=== PATIENT | female | born 1945 | race Caucasian/White ===

== ENCOUNTER 2025-04-25 09:07 | Observation (INO) | payer MEDICARE ==
[~2025-04-25] VITALS: Ht 160 cm; Wt 68.6 kg
[2025-04-25 09:33] LABS: BASOPHILS ABSOLUTE AUTO 0.05 K/mm3 (0.00-0.23); BASOPHILS PERCENT AUTO 1 % (0-2); EOSINOPHILS ABSOLUTE AUTO 0.02 K/mm3 (0.00-0.68); EOSINOPHILS PERCENT AUTO 0 % (0-6); Hematocrit 38.3 % (33.0-51.0); Hemoglobin 12.7 g/dL (11.5-16.0); IMMATURE GRAN ABSOLUTE AUTO 0.01 K/mm3 (0.00-0.10); IMMATURE GRAN PERCENT AUTO 0 % (0-1); LYMPHOCYTES ABSOLUTE AUTO 1.30 K/mm3 (0.84-5.20); LYMPHOCYTES PERCENT AUTO 27 % (21-46); MONOCYTES ABSOLUTE AUTO 0.31 K/mm3 (0.16-1.47); MONOCYTES PERCENT AUTO 6 % (4-13); Mean Corpuscular HGB Conc 33.2 g/dL (31.5-36.5); Mean Corpuscular Volume 94 fL (80-100); NEUTROPHILS ABSOLUTE AUTO 3.19 K/mm3 (1.96-9.15); NEUTROPHILS PERCENT AUTO 65 % (41-73); NRBC ABSOLUTE 0.00 K/mm3 (0.00-0.02); NRBC Auto 0.0 /100 WBC (0.0-0.2); Platelet Count 134 K/mm3 (150-400); RDW Coefficient Variation 13.1 % (11.7-14.2); RDW Standard Deviation 44.9 fL (35.1-46.3)
[2025-04-25] MEDS ORDERED: Aspir 8181 MG PO (09:43)
[2025-04-25] MEDS ORDERED: GABA300 PO (09:44)
[2025-04-25] MEDS ORDERED: BASAGLAR K100 UNIT/1 SC (09:45)
[2025-04-25] MEDS ORDERED: LOSA50 PO (09:45)
[2025-04-25] MEDS ORDERED: METF500C PO (09:46)
[2025-04-25] MEDS ORDERED: NAPROXEN SODIU220 MG PO (09:47)
[2025-04-25] MEDS ORDERED: EFFEXOR XR150 MG PO (09:48)
[2025-04-25] MEDS ORDERED: LOPE2C PO (09:49)
[2025-04-25] MEDS ORDERED: ACYC800 PO (09:49)
[2025-04-25 10:00] LABS: Alanine Aminotransfer (ALT/SGP 17.0 U/L (12-78); Albumin, Blood 3.3 g/dL (3.4-5.0); Albumin/Globulin Ratio 1.2 (0.8-1.8); Anion Gap 6.0 mmol/L (3-11); Aspartate Aminotrans (AST/SGOT 15.0 U/L (12-37); Bilirubin, Total 0.5 mg/dL (0.1-1.0); Blood Urea Nitrogen 19.0 mg/dL (8-24); CO2, Blood 29.0 mmol/L (21-32); Calcium, Blood 8.8 mg/dL (8.5-10.1); Chloride, Blood 108.0 mmol/L (98-108); Creatinine, Blood 0.66 mg/dL (0.40-1.00); Globulin, Blood 2.7 g/dL (2.2-4.0); Glucose, Blood 171.0 mg/dL (70-99); Potassium, Blood 3.9 mmol/L (3.5-5.5); Sodium, Blood 139.0 mmol/L (136-145); Total Protein, Blood 6.0 g/dL (6.4-8.2)
[2025-04-25 11:28] LABS: Source, Urine Clean Catch
[2025-04-25 11:37] LABS: Bilirubin, Urine Neg (Neg); Color, Urine Yellow (P-Yellow); Glucose Qualitative, Urine Neg (Neg); Ketones, Urine Neg (Neg); Leukocyte Esterase, Urine 1+ (Neg); Protein, Urine 1+ (Neg); Specific Gravity, Urine 1.020 (1.003-1.022); Urobilinogen, Urine NORM (Normal)
[2025-04-25 11:56] LABS: Red Blood Cells, Urine 0-2 /hpf (0-2)
[2025-04-25] MEDS ORDERED: CefTRIAXone Sodium 1,000 MG in NS 100 ML IV ONE (12:15)
[2025-04-25] MEDS ORDERED: HydrALAZINE HCl 20 MG / ML 1ML Vial IV PRN ×2 (14:05→17:10)
[2025-04-25] MEDS ORDERED: Ondansetron HCl 2 MG / ML 2ML Vial IV PRN (14:55)
[2025-04-25] MEDS ORDERED: FLU VACC TS2025(65UP)/MF59C/PF 45 MCG/0.5 ML SYRINGE IM SCH (14:55)
[2025-04-25 17:16] VITALS: BP 147/82
--- NOTE | 2025-04-25 18:26 | NUR ---
END OF SHIFT PATIENT RESTING IN BED, FAMILY AT BEDSIDE. QUICK ADMIT COMPLETED AND MED LIST REVIEWED. BED ALARM IN PLACE, PATIENT ORIENTATED TO ROOM AND SAFETY MEASSURES. NO OTHER CONCERNS FOR THIS SHIFT.
[2025-04-25 19:42] VITALS: BP 141/78
[2025-04-25] MEDS ORDERED: Insulin Human Lispro 100 Units/ML 3ML Syringe SC SCH (21:00)
[2025-04-25] MEDS ORDERED: Insulin Glargine 100 Unit/ML 3 ML SYR SC SCH (21:00)
[2025-04-25] MEDS ORDERED: Lactobacil 2-S.Thermo-Bifido 1 1 Cap PO SCH (21:00)
--- NOTE | 2025-04-26 02:34 | NUR ---
SHIFT SUMMARY NO ACUTE EVENTS DURING THIS SHIFT. PT IS A/O X4, ABLE TO MAKE HER NEEDS KNOWN AND COOPERATIVE WITH CARE. PT PREFERRED TO SWALLOW ALL PILLS AT THE SAME TIME FROM A PILL CUP- NO SWALLOWING ISSUES NOTED AT HS. PT ON THE BSC MULTIPLE TIMES AT HS. RUNNY STOOL AT FIRST, THEN MORE FORMED. PT DENIES PAIN AND DISCOMFORT AT HS. VOIDING WELL. BED AT THE LOWEST POSITION, CALL LIGHT W/I REACH.
[2025-04-26 04:31] VITALS: BP 146/79
[2025-04-26 05:39] LABS: BASOPHILS ABSOLUTE AUTO 0.06 K/mm3 (0.00-0.23); BASOPHILS PERCENT AUTO 2 % (0-2); EOSINOPHILS ABSOLUTE AUTO 0.03 K/mm3 (0.00-0.68); EOSINOPHILS PERCENT AUTO 1 % (0-6); Hematocrit 38.1 % (33.0-51.0); Hemoglobin 12.7 g/dL (11.5-16.0); IMMATURE GRAN ABSOLUTE AUTO 0.00 K/mm3 (0.00-0.10); IMMATURE GRAN PERCENT AUTO 0 % (0-1); LYMPHOCYTES ABSOLUTE AUTO 1.10 K/mm3 (0.84-5.20); LYMPHOCYTES PERCENT AUTO 27 % (21-46); MONOCYTES ABSOLUTE AUTO 0.32 K/mm3 (0.16-1.47); MONOCYTES PERCENT AUTO 8 % (4-13); Mean Corpuscular HGB Conc 33.3 g/dL (31.5-36.5); Mean Corpuscular Volume 95 fL (80-100); NEUTROPHILS ABSOLUTE AUTO 2.59 K/mm3 (1.96-9.15); NEUTROPHILS PERCENT AUTO 63 % (41-73); NRBC ABSOLUTE 0.00 K/mm3 (0.00-0.02); NRBC Auto 0.0 /100 WBC (0.0-0.2); Platelet Count 125 K/mm3 (150-400); RDW Coefficient Variation 13.4 % (11.7-14.2); RDW Standard Deviation 46.9 fL (35.1-46.3)
[2025-04-26 06:15] LABS: Alanine Aminotransfer (ALT/SGP 15.0 U/L (12-78); Albumin, Blood 3.1 g/dL (3.4-5.0); Albumin/Globulin Ratio 1.1 (0.8-1.8); Anion Gap 8.0 mmol/L (3-11); Aspartate Aminotrans (AST/SGOT 10.0 U/L (12-37); Bilirubin, Total 0.5 mg/dL (0.1-1.0); Blood Urea Nitrogen 19.0 mg/dL (8-24); CO2, Blood 26.0 mmol/L (21-32); Calcium, Blood 9.1 mg/dL (8.5-10.1); Chloride, Blood 111.0 mmol/L (98-108); Creatinine, Blood 0.59 mg/dL (0.40-1.00); Globulin, Blood 2.7 g/dL (2.2-4.0); Glucose, Blood 114.0 mg/dL (70-99); Potassium, Blood 3.7 mmol/L (3.5-5.5); Sodium, Blood 141.0 mmol/L (136-145); Total Protein, Blood 5.8 g/dL (6.4-8.2)
[2025-04-26 07:27] VITALS: BP 148/73
[2025-04-26] MEDS ORDERED: Enoxaparin 40 MG/0.4 ML SYR SC SCH (09:00)
[2025-04-26] MEDS ORDERED: NS 250 ML IV PRN (10:10)
[2025-04-26] MEDS ORDERED: NAPR220 PO (11:10)
[2025-04-26 11:29] VITALS: BP 140/64
[2025-04-26] MEDS ORDERED: CefTRIAXone Sodium 1,000 MG in NS 100 ML IV SCH (12:00)
[2025-04-26 15:24] VITALS: BP 139/82
--- NOTE | 2025-04-26 18:22 | NUR ---
SHIFT SUMMARY PATIENT A&O X4. PLEASANT AND COOPERATIVE DURING CARE. MEDICATION ADMINISTERED PER EMAR. PATIENT MAKE NEEDS KNOWN. NO ACUTE CHANGE DURING THIS SHIFT. SELF-RESPOSITIONED THROUGHOUT THE SHIFT. TOLERATING PO, WORKING WITH PT AND OT. BED LOCKED, ALARM ON AND IN LOWEST POSITION. CALL LIGHT WITHIN REACH.
[2025-04-27] VITALS (8 sets, daily range): BP systolic 140–187; BP diastolic 67–100
--- NOTE | 2025-04-27 06:37 | NUR ---
SHIFT SUMMARY PT OOB TO BSC WITH SBA. DENIES THE NEED FOR PAIN MEDICATION. SLIGHT BUE TREMORS NOTED- PT STATES NOT NEW. EDEMA CONTINUES TO BLE'S. SLEPT INTERMITTENTLY DURING THE NIGHT.
[2025-04-27] MEDS ORDERED: VISBIOME 112.51 EACH PO (11:52)
[2025-04-27] MEDS ORDERED: AMLO10 PO (11:52)
[2025-04-27] MEDS ORDERED: HUMALOG JU100 UNIT/2 (11:52)
[2025-04-27] MEDS ORDERED: HYDRA25 PO (11:53)
[2025-04-27] MEDS ORDERED: CEPH500 PO (11:53)
--- NOTE | 2025-04-27 13:11 | NUR ---
MD CALL BP CHECK 1HR POST AMLODIPINE WAS [address] BOWDEN NOTIFIED. TO FOR 50MG PO HYDRALAZINE NOW. HOLD DISCHARGE UNTIL SBP LESS THAN 160. READ BACK DONE AND ORDER ENTERED INTO [employer]
--- NOTE | 2025-04-27 16:14 | NUR ---
Patient is A&O x4. O2 100% on room air. 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 Deep breahting and ROM exercises helped witH pain. Patients BP was elevated; corrected with PO and IV meds. Patients skin was dry. Reddness on arms bilaterally and on coccyx. Patient at 100% of breakfast and lunch. Patient was dishcarged at 1530. Patient stated 3/10 pain before discharge. Patient discharged via medical transport to [facility]. Report given to Carline at [facility].
--- NOTE | 2025-04-27 16:27 | NUR ---
RN NOTE I CARED FOR MS ANABEL WITH STUDENT NURSE CHRISTOPH TODAY. I AGREE WITH HIS ASSESSMENT AND NOTE.
== END 2025-04-27 15:40 ==
LOC: ER 09:07 → MEDS 09:08 → ER 16:43 → MEDS 16:45 → ENPENDDIS 04-27 15:28 → MEDS 04-27 15:40
PROVIDERS: Emergency Medicine; ADMIT Internal Medicine
DX: N39.0 Urinary tract infection, site not specified (principal); B96.20 Unspecified Escherichia coli [E. coli] as the cause of diseases classified elsewhere; I10 Essential (primary) hypertension; E11.9 Type 2 diabetes mellitus without complications; R29.6 Repeated falls; Z79.4 Long term (current) use of insulin; Z79.82 Long term (current) use of aspirin; Z79.84 Long term (current) use of oral hypoglycemic drugs; Z79.899 Other long term (current) drug therapy
CPT/HCPCS: 36415; 51701; 70450; 80053; 81001; 82947; 85025; 87077; 87086; 87186; 93005; 93010; 96365-59; 96372; 96375-59; 96376; 97110-CQ; 97161; 97165; 97530; 97530-CQ; 97535; 99285-25; A9270; G0378; J0360; J0696; J1650; J1815; J7050